=== PATIENT | male | born 1955 | race Caucasian/White ===

== ENCOUNTER 2018-03-22 11:51 | Emergency (ER) | payer MEDICAID ==
[~2018-03-22] VITALS: Ht 172.7 cm; Wt 100.0 kg
[~2018-03-22 11:51] MED LIST: ALBU17AE26 IH; BAC10T PO; HYDR-4353 PO; METH4TAB3 PO; NAP220T PO; TIOT18CA7 IH
[2018-03-22 11:55] VITALS: BP 170/84
== END 2018-03-22 12:55 | disposition home or self-care (01) ==
LOC: ER 11:51
DX: S00.81XA Abrasion of other part of head, initial encounter (principal); M54.2 Cervicalgia; M54.6 Pain in thoracic spine; M19.90 Unspecified osteoarthritis, unspecified site; G89.29 Other chronic pain; Z98.890 Other specified postprocedural states; Z79.899 Other long term (current) drug therapy; V98.8XXA Other specified transport accidents, initial encounter; Y93.89 Activity, other specified; Y92.89 Other specified places as the place of occurrence of the external cause; Y99.9 Unspecified external cause status
CPT/HCPCS: 70450; 72125; 99284

== ENCOUNTER 2024-08-07 11:31 | Emergency (ER) | payer MEDICAID ==
[~2024-08-07] VITALS: Ht 172.7 cm; Wt 107.7 kg
[2024-08-07 11:36] VITALS: BP 149/93; PULSE 69; O2SAT 97
[2024-08-07] MEDS ORDERED: TIZA-189 PO (12:17)
[2024-08-07] MEDS ORDERED: NAPR-56 PO (12:17)
[2024-08-07] MEDS: tizanidine 4mg tablet PO PRN (12:21)
[2024-08-07 12:22] VITALS: RESP 16
[2024-08-07] MEDS: acetaminophen 325mg tablet PO ONE (12:22)
[2024-08-07] MEDS: ketorolac trometh 30MG/ML vial 30 MG/ML VIAL IM ONE (12:22)
[2024-08-07 12:27] VITALS: TEMP 97.1
== END 2024-08-07 13:00 | disposition home or self-care (01) ==
LOC: ER 11:32
DX: M54.50 Low back pain, unspecified (principal); G89.29 Other chronic pain; M54.9 Dorsalgia, unspecified; Z79.1 Long term (current) use of non-steroidal anti-inflammatories (NSAID); Z79.899 Other long term (current) drug therapy; Z98.890 Other specified postprocedural states
CPT/HCPCS: 96372; 99283; J1885

== ENCOUNTER 2024-09-26 16:05 | Emergency (ER) | payer MEDICARE, MEDICAID ==
[~2024-09-26] VITALS: Ht 172.7 cm; Wt 113.3 kg
[~2024-09-26 16:05] MED LIST changes: +TIZA-189 PO
[2024-09-26 16:17] VITALS: BP 165/96; PULSE 79; O2SAT 95
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
--- NOTE | 2024-09-26 17:26 | RADIOLOGY REPORT ---
CLINICAL INDICATION: Neck pain TECHNIQUE: 4 radiographic views of the cervical spine were obtained. Comparison: None FINDINGS/IMPRESSION: There is postsurgical changes of the cervical spine with C5 corpectomy cage and anterior C4-C6 plate with screws. Large anterior bridging osteophytes C3-C4. Straightening of the cervical lordosis. The dens is intact with the lateral masses of C1 and C2 properly aligned. No evidence of acute traum atic fractures or spondylolisthesis. The prevertebral soft tissues are unremarkable. The airways are patent.
--- NOTE | 2024-09-26 17:37 | RADIOLOGY REPORT ---
Indication: ELBOW PAIN Technique: 4 views left elbow Comparison: None FINDINGS/IMPRESSION: No radiographic evidence for acute fracture or dislocation. No significant soft tissue edema. No rad iopaque foreign body. Mineralization at the medial humeral condyle, likely sequela of chronic epicondylitis. Enthesopathy at triceps insertion upon the olecranon.
--- NOTE | 2024-09-26 17:38 | RADIOLOGY REPORT ---
Indication: Shoulder Pain Technique: 3 views of the left shoulder Comparison: None FINDINGS/IMPRESSION: No evidence for glenohumeral dislocation. Cortical irregularity/lucency within the glenoid may represent nondisplaced fracture. Correlate with pain symptoms. CT of the left shoulder can be obtained for further characterization. Moderate left AC joint arthrosis. Cervical fusion hardware.
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
[2024-09-26] MEDS ORDERED: TRAM50TA2 PO (18:18)
[2024-09-26] MEDS ORDERED: IBUP-864 PO (18:18)
[2024-09-26 18:20] VITALS: RESP 16
[2024-09-26] MEDS: HYDROcodone/acetaminophen 10/325mg tab PO ONE (18:20)
== END 2024-09-26 18:31 | disposition home or self-care (01) ==
LOC: ER 16:06
DX: S40.212A Abrasion of left shoulder, initial encounter (principal); S80.212A Abrasion, left knee, initial encounter; S50.312A Abrasion of left elbow, initial encounter; V28.01XA Electric (assisted) bicycle driver injured in noncollision transport accident in nontraffic accident, initial encounter; Y93.89 Activity, other specified; Y92.89 Other specified places as the place of occurrence of the external cause; Y99.8 Other external cause status
CPT/HCPCS: 70450; 72040; 72125; 73030; 73080; 73564; 99284; A4565

== ENCOUNTER 2024-10-01 11:39 | Emergency (ER) | payer MEDICARE, MEDICAID ==
[~2024-10-01] VITALS: Ht 172.7 cm; Wt 113.2 kg
[~2024-10-01 11:39] MED LIST changes: +IBUP-864 PO; +TRAM50TA2 PO
[2024-10-01 11:43] VITALS: BP 166/87; PULSE 70; O2SAT 96
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
--- NOTE | 2024-10-01 12:24 | RADIOLOGY REPORT ---
DI UNI RIBS WITH PA CHEST, HISTORY: left RIB PAIN COMPARISON: None None TECHNICAL DATA: 1 view of the chest was obtained. FINDINGS: Lines and tubes: None Cardiomediastinal silhouette: normal Pulmonary vasculature: normal Lung expansion: normal Lung airspace: normal Lung interstitium: normal Pleura: normal Pneumothorax: no Bones: Possible left lateral 6th rib fracture. Other: no IMPRESSION: No acute intrathoracic abnormality. Possible left lateral 6th rib fracture.
[2024-10-01] MEDS ORDERED: NAPR-56 PO (13:13)
[2024-10-01 13:37] VITALS: RESP 16
[2024-10-01] MEDS: ketorolac trometh 30MG/ML vial 30 MG/ML VIAL IM ONE (13:37)
[2024-10-01 13:54] VITALS: TEMP 97.6
== END 2024-10-01 13:55 | disposition home or self-care (01) ==
LOC: ER 11:39
DX: S22.32XA Fracture of one rib, left side, initial encounter for closed fracture (principal); V00.141A Fall from scooter (nonmotorized), initial encounter; Y93.89 Activity, other specified; Y92.89 Other specified places as the place of occurrence of the external cause; Y99.8 Other external cause status
CPT/HCPCS: 71101; 96372; 99283; J1885

== ENCOUNTER 2024-11-07 11:42 | Emergency (ER) | payer MEDICARE, MEDICAID ==
[~2024-11-07] VITALS: Ht 172.7 cm; Wt 116.0 kg
[~2024-11-07 11:42] MED LIST changes: -TRAM50TA2 PO
--- NOTE | 2024-11-07 11:55 | ELECTROCARDIOGRAPH REPORT ---
[facility] Test Date: 2024-11-07 Test Time: 11:50:30 Pat Name: RODOLFO MORRIS Department: EMERGENCY ROOM Room: Gender: M Account Underwriter: PM : 1955 Requested By: BRIA MORIN Order Number: [id number] Reading MD: Dr. Mark Dawn Measurements Intervals [place] Rate: 98 P: 24 HI: 153 QRS: 3 QRSD: 96 T: 59 QT: 340 QTc: 435 Interpretive Statements Sinus rhythm RSR' in V1 or V2, right VCD or RVH Electronically Signed On 11-07-2024 18:16:[address] Mark Dawn Please click the below link to view image of tracing.
[2024-11-07 11:59] VITALS: TEMP 98.1
[2024-11-07] MEDS: albuterol 2.5 MG/3 ML nebule NEB ONE (12:07)
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
[2024-11-07 12:10] VITALS: PULSE 92; RESP 20; O2SAT 94
[2024-11-07] MEDS ORDERED: LIDOCAINE 4% (40MG/ML) topical solution 50ml **BRONCH ONLY TP ONE (12:20)
[2024-11-07] MEDS ORDERED: LIDOcaine 40mg/ml topical solution MM ONE (12:30)
[2024-11-07] MEDS ORDERED: LIDOcaine 40mg/ml topical solution IH ONE (12:30)
[2024-11-07 12:32] LABS: MEAN PLATELET VOLUME 9.5 FL (7.4-10.4); RED CELL DISTRIBUTION WIDTH 15.0 % (11.5-14.5)
[2024-11-07] MEDS: LIDOcaine 40mg/ml topical solution IH ONE (12:32)
[2024-11-07 12:34] VITALS: PULSE 90; RESP 17; O2SAT 99
[2024-11-07] MEDS: LIDOCAINE 4% (40MG/ML) topical solution 50ml **BRONCH ONLY ONE (12:41)
[2024-11-07 12:42] LABS: CREATININE 1.00 MG/DL (0.60-1.10); TOTAL CARBON DIOXIDE 23.0 MMOL/L (24-32); eCRCL 69 ML/MIN; eGFR 75 ML/MIN
[2024-11-07] MEDS: normal saline 1000ML IV soln IVB ONE (12:43)
[2024-11-07 13:59] VITALS: BP 149/76; PULSE 89; RESP 17; O2SAT 94
--- NOTE | 2024-11-10 07:58 | RADIOLOGY REPORT ---
CHEST RADIOGRAPH Indication: SOB Technique: Single frontal view of the chest was obtained Comparison: None FINDINGS: Lines and Tubes: None Lungs: Mild interstitial prominence. No focal consolidation. Pleura: No effusion. No pneumothorax. Cardiomediastinal contours: Cardiomegaly. Bones: No acute osseous abnormality. ACDF. IMPRESSION: 1. Mild interstitial prominence compatible with mild pulmonary venous congestion. 2. Cardiomegaly.
== END 2024-11-07 14:13 | disposition home or self-care (01) ==
LOC: ER 11:43
DX: J45.901 Unspecified asthma with (acute) exacerbation (principal); M19.90 Unspecified osteoarthritis, unspecified site; R06.02 Shortness of breath
CPT/HCPCS: 36415; 71045; 80048; 85025; 93005; 94640; 96374; 99285; J2919; J7030; 94760; J3490